=== PATIENT | male | born 2005 | race Caucasian/White ===

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

== ENCOUNTER 2024-04-27 17:32 | Emergency (ER) | payer MEDICAID, SELFPAY ==
[2024-04-27 17:34] VITALS: BP 132/79; PULSE 80; RESP 18; TEMP 36.7; O2SAT 100; BMI 29.2
--- NOTE | 2024-04-27 17:58 | EDS_ITS ---
HPI History of Present Illness Chief Complaint: Mental Health Narrative Narrative: patient is a 19-year-old male with a past medical history of schizophrenia coming Dieud[place], depression, carotid disease who presents to the emergency department after being had a counseling appointment in which she was pink slipped and brought here. According to the patient he has been off his schizophrenia meds now for quite some time in the past 2 days restarted these. He states that he has been having intrusive thoughts of [facility] killing his grandfather as his grandfather is dying of leukemia anyhow' patient otherwise states that he is feeling well and he states that he just does not trust himself with these thoughts anymore. [facility] Medical History Anxiety Depression Hirschsprung's disease Crohn's disease Home Medications ?Medication ?Instructions ?Recorded ?Last Taken ?Type venlafaxine 37.5 mg 37.5 mg PO DAILY DEPRESSION 12/09/18 Unknown History capsule,extended release 24 hr (Effexor XR) hydroxyzine pamoate 25 mg capsule 25 mg PO TID ANXIETY 04/27/24 Unknown History melatonin 10 mg capsule 10 mg PO QHS PRN PRN insomnia 04/27/24 Unknown History paliperidone 3 mg tablet,extended 3 mg PO QHS MOOD 04/27/24 Unknown History release 24 hr trazodone 50 mg tablet 50 mg PO QHS PRN PRN insomnia 04/27/24 Unknown History venlafaxine 75 mg capsule,extended 75 mg PO DAILY DEPRESSION 04/27/24 Unknown History release 24 hr Allergy/AdvReac Type Severity Reaction Status Date / Time red dye Allergy Nausea/Vom/ Verified 04/27/24 17:34 Diarrhea lorazepam (From Ativan) AdvReac PT UNABLE Verified 04/27/24 17:34 TO RESPOND-NEEDS F/U Surgical History Hx of colostomy Social History Smoking Status: Current every day smoker tobacco type: cigarettes and e- cigarettes ROS ROS ED ROS Narrative Constitutional: Denies fevers, chills, headaches, lightheadedness, dizziness Eyes: Denies change in vision double vision blurry vision Cardiovascular: Denies chest pain or palpitations Respiratory: Denies coughing wheezing shortness of breath Abdomen: Denies abdominal pain nausea vomit diarrhea : Denies any urinary symptoms Neurological: Denies numbness, weakness, tingling Psychiatric: Complains of intrusive thoughts as noted above in HPI Musculoskeletal: Denies back pain Skin: Denies rashes or lesions EXAM Physical Exam Narrative Exam Narrative: General: Patient is lying in bed rest comfortably did not appear to be in acute distress Head: Atraumatic, normocephalic Eyes: PERRL bilaterally, EOMI bilaterally, no conjunctival injection noted Neck: Soft, supple, trachea midline Cardiovascular: Regular rate and rhythm no murmurs gallops rubs noted Respiratory: Clear to auscultation bilaterally no rales rhonchi wheeze noted Abdomen: Soft, nondistended, no tenderness palpation, bowel sounds present comes for Extremities: +5/5 strength noted in the bilateral upper and lower extremities, no pedal edema neuroexam Neurological: Patient followed commands and he is aware that her hospital year is 2023 Skin: Warm, dry, intact Const Vital Signs: 04/27/24 17:34 Temperature 98.1 F Temperature Source Temporal Pulse Rate 80 Respiratory Rate 18 Blood Pressure 132/79 H Blood Pressure Mean 96 Pulse Ox 100 Oxygen Delivery Method Room Air MDM MDM MDM Narrative Medical decision making narrative: Patient is a 19-year-old male who presented to the emergency department chief complaint of intrusive thoughts of [facility] killing his grandfather. He was pink slipped prior to his arrival here by his counselor. Patient will have a workup performed here on the differential diagnosis includes but limited to schizophrenia, anxiety, depression, suicidal/homicidal ideations. Once workup is obtained and reviewed he will be reevaluated by social work. Patient CBC reviewed and was largely unremarkable no leukocytosis noted white blood count normal at 8.4, hemoglobin stable 15.7, plate count normal at 255. Patient sodium normal 139, potassium of 3.4, creatinine normal at 0.75. Patient's drug screen negative, alcohol level less than 3. Patient was accepted to facility for inpatient rehab by Dr. mariee. Lab Data Labs: Laboratory Results - last 24 hr 04/27/24 18:00 WBC 8.4 RBC 5.42 Hgb 15.7 Hct 47.3 MCV 87.3 MCH 29.0 MCHC 33.2 RDW Std Deviation 42.7 RDW Coeff of Myranda 13.4 Plt Count 255 MPV 11.3 Immature Gran % (Auto) 0.200 Neut % (Auto) 53.0 Lymph % (Auto) 36.8 [place] % (Auto) 9.1 Eos % (Auto) 0.4 Baso % (Auto) 0.5 Absolute Neuts (auto) 4.5 Absolute Lymphs (auto) 3.11 Nucleated RBC % 0 Sodium 139 Potassium 3.4 L Chloride 105 Carbon Dioxide 27.0 Anion Gap 7 BUN 7 Creatinine 0.75 Estim Creat Clear Calc 184.91 Est GFR (MDRD) Af Amer 170 Est GFR (MDRD) Non-Af 141 BUN/Creatinine Ratio 9.3 L Glucose 93 Calcium 9.6 Urine Opiates Screen NEGATIVE Urine Methadone Screen NEGATIVE Ur Barbiturates Screen NEGATIVE Ur Phencyclidine Scrn NEGATIVE Ur Amphetamines Screen NEGATIVE MDMA (Ecstasy) Screen NEGATIVE U Benzodiazepines Scrn NEGATIVE Urine Cocaine Screen NEGATIVE U Cannabinoids Screen NEGATIVE Ur Drug Screen Comment Ethyl Alcohol < 3.0 Discharge Plan Triage Chief Complaint: Mental Health ED Provider: Cesar Sykes Dx/Rx/DC Orders Prescriptions: No Action venlafaxine [Effexor XR] 37.5 MG capsule,extended release 24hr 37.5 mg PO DAILY hydroxyzine pamoate 25 mg capsule 25 mg PO TID paliperidone 3 mg tablet extended release 24hr 3 mg PO QHS venlafaxine 75 mg capsule,extended release 24hr 75 mg PO DAILY trazodone 50 mg tablet 50 mg PO QHS PRN PRN (Reason: insomnia) melatonin 10 mg capsule 10 mg PO QHS PRN PRN (Reason: insomnia) Primary Care Provider: Julian Valle [facility] Referrals: Kushal Lay MD [Non-Staff] - Print Language: Slovak
[2024-04-27 18:12] LABS: Absolute Lymphocyte Count 3.11 X10^3/uL (0.83-4.51); Absolute Neutrophil Count 4.5 X10^3/uL (2.0-7.7); Basophil# 0.04 X10^3/uL; Basophil% 0.5 % (0-1); Eosinophil# 0.03 X10^3/uL; Eosinophils% 0.4 % (0-5); Hematocrit 47.3 % (40-54); Hemoglobin 15.7 g/dL (13.0-16.5); Lymphocyte # 3.11 X10^3/ul (0.83-4.51); Lymphocyte % 36.8 % (19-41); Mean Corp Hgb Conc 33.2 g/dL (32-36); Mean Corpuscular Volume 87.3 fL (80-94); Mean Platelet Vol. 11.3 fl (6.2-12.0); Monocyte# 0.77 X10^3/uL; Monocyte% 9.1 % (0-10); NRBC Flagged by Analyzer 0 % (0-5); Neutrophil # 4.47 X10^3/uL (2.7-7.7); Platelet Count 255 K/mm3 (150-450); RBC Distribution Width CV 13.4 % (11.6-14.6); RBC Distribution Width SD 42.7 fl (35.1-43.9); Red Blood Count 5.42 M/mm3 (4.6-6.2); White Blood Count 8.4 K/mm3 (4.4-11.0)
[2024-04-27 18:19] LABS: Anion Gap 7 (5-15); BUN 7 mg/dL (7-18); BUN/Creat Ratio 9.3 RATIO (10-20); Calcium,Total 9.6 mg/dL (8.5-10.1); Chloride 105 mmol/L (98-107); Creatinine, Serum 0.75 mg/dL (0.70-1.30); EST Glomerular Filtration Rate 141 mL/min (>60); Est Glom Filt Rate - Afr Amer 170 mL/min (>60); Estimated Creatinine Clearance 184.91 ml/min; Glucose 93 mg/dL (74-106); Potassium 3.4 mmol/L (3.5-5.1); Sodium Level 139 mmol/L (136-145)
[2024-04-27 18:22] LABS: Alcohol, Blood (Medical)-Serum < 3.0 mg/dL
[2024-04-27 18:39] LABS: Vista UDS pH Range 5
[2024-04-27 18:40] LABS: Amphetamine Urine VISTA NEGATIVE (<1000 ng/mL); Barbiturate Urine VISTA NEGATIVE (< 200 ng/mL); Benzodiazepine Urine VISTA NEGATIVE (< 200 ng/mL); Cocaine Urine VISTA NEGATIVE (< 300 ng/mL); Ecstacy Urine VISTA NEGATIVE (< 500 ng/mL); Methadone Urine VISTA NEGATIVE (< 300 ng/mL); PCP Urine VISTA NEGATIVE (< 25 ng/mL); THC Urine VISTA NEGATIVE (< 50 ng/mL)
--- NOTE | 2024-04-27 21:14 | ED.RN ---
CRISIS CALLED AT 2114 FOR AN UPDATE ON THE REFFEREALS , [facility] AND [facility]
[2024-04-27] MEDS: traZODone 50 MG Tablet PO (21:52)
[2024-04-27] MEDS: MELATONIN 10 MG TABLET PO (21:52)
[2024-04-27] MEDS: hydrOXYzine PAM 25 MG Capsule PO (21:59)
[2024-04-28 03:14] VITALS: BP 97/66; PULSE 59; RESP 18; TEMP 36.4
[2024-04-28 06:11] VITALS: BP 97/66; PULSE 59; RESP 18; TEMP 36.4; O2SAT 100
[2024-04-28] MEDS: hydrOXYzine PAM 25 MG Capsule PO (06:44)
== END 2024-04-28 09:01 ==
LOC: ED 18:14
PROVIDERS: Emergency Provider Emergency Medicine; PCP Nurse Practitioner Family; Visit Provider Emergency Medicine
DX: R45.850 Homicidal ideations (principal); F32.A Depression, unspecified; F41.9 Anxiety disorder, unspecified; F17.210 Nicotine dependence, cigarettes, uncomplicated; F17.290 Nicotine dependence, other tobacco product, uncomplicated; Z79.899 Other long term (current) drug therapy
CPT/HCPCS: 80048; 80307; 82077; 85025; 99284

== ENCOUNTER 2024-05-10 15:59 | Emergency (ER) | payer MEDICAID, SELFPAY ==
[2024-05-10 16:00] VITALS: BP 126/97; PULSE 105; RESP 18; TEMP 36.8; O2SAT 99; BMI 28.7
--- NOTE | 2024-05-10 17:03 | EX.ED.VIS.PS ---
HPI HPI - Psych History of Present Illness Chief Complaint: Anxiety Detail of Chief Complaint: Anxiety Informant: patient and parent Narrative Narrative: Patient presents to the emergency department complaint of anxiety. Patient states that she started feeling poorly about 2 hours ago. Patient just feels like he needs to keep moving. He feels like he needs to go to sleep. Feel anxious and jittery. He does have history of schizophrenia. He was started recently on Lexapro a week ago 5 mg. Patient took his Lexapro this morning around 8 AM. Patient also on Invega once a month. Patient also takes trazodone at night to help him sleep. Denies recent illness. Denies feeling suicidal or homicidal. [facility] Medical History Anxiety Depression Hirschsprung's disease Crohn's disease Home Medications ?Medication ?Instructions ?Recorded ?Last Taken ?Type venlafaxine 37.5 mg 37.5 mg PO DAILY DEPRESSION 12/09/18 Unknown History capsule,extended release 24 hr (Effexor XR) hydroxyzine pamoate 25 mg capsule 25 mg PO TID ANXIETY 04/27/24 Unknown History melatonin 10 mg capsule 10 mg PO QHS PRN PRN insomnia 04/27/24 Unknown History paliperidone 3 mg tablet,extended 3 mg PO QHS MOOD 04/27/24 Unknown History release 24 hr trazodone 50 mg tablet 50 mg PO QHS PRN PRN insomnia 04/27/24 Unknown History venlafaxine 75 mg capsule,extended 75 mg PO DAILY DEPRESSION 04/27/24 Unknown History release 24 hr alprazolam 0.5 mg tablet (Xanax) 0.5 mg PO TID PRN anxiety #10 tabs 05/10/24 Unknown Rx Allergy/AdvReac Type Severity Reaction Status Date / Time red dye Allergy Nausea/Vom/ Verified 05/10/24 16:00 Diarrhea lorazepam (From Ativan) AdvReac PT UNABLE Verified 05/10/24 16:00 TO RESPOND-NEEDS F/U Surgical History Hx of colostomy Social History Smoking Status: Current every day smoker tobacco type: cigarettes and e-cigarettes ROS ROS ED Review of Systems ROS Unobtainable: other Constitutional Constitutional ED: Reports lethargy; Denies chills, fever(s), sweats or weight loss Eyes Eyes: Denies blurry vision, change in vision or diplopia ENT ENT ED: Denies rhinorrhea or sore throat Cardiovascular Cardiovascular: Denies chest pain, orthopnea or racing heartbeat Respiratory/Chest Respiratory/Chest: Denies cough, dyspnea, dyspnea on exertion, orthopnea or sputum Gastrointestinal Gastrointestinal: Denies abdominal pain, diarrhea, nausea or vomiting Genitourinary Genitourinary ED: Denies dysuria, hematuria or urinary frequency Musculoskeletal Musculoskeletal: Denies arthralgias, back pain, myalgias or neck pain Integumentary Denies abscess, Abrasions or rash Neurologic Neurologic: Denies headache(s) or weakness Psychiatric Psychiatric: Reports anxiety and other Details: Anxious and jittery ; Denies depression or suicidal thoughts Endocrine Endocrinology: Denies polydipsia, polyphagia or polyuria Hematologic/Lymphatic Hematologic/Lymphatic: Denies easy bleeding, easy bruising or lymphadenopathy Allergic/Immunologic Allergic/Immunologic ED: Denies mouth swelling, tongue swelling or urticaria EXAM Physical Exam Const Vital Signs: 05/10/24 16:00 05/10/24 18:09 05/10/24 19:22 Temperature 98.2 F 98.2 F Temperature Source Oral Pulse Rate 105 H 74 131 H Respiratory Rate 18 16 18 Blood Pressure 126/97 H 136/84 H Blood Pressure Mean 106 101 Pulse Ox 99 98 100 Oxygen Delivery Method Room Air Room Air Positive well nourished and well developed General Appearance ED: well developed and NAD HEENT Reports TM's clear and moist mucous membranes normocephalic and atraumatic; Negative for trauma or tenderness Tympanic Membrane ED: Yes TM's clear Eyes PERRL and EOMs intact bilaterally General Eye ED: Negative for pale conjunctiva or scleral icterus Neck no lymphadenopathy, supple and no JVD General: Negative for tenderness Chest Wall inspection of chest normal and palpation of chest normal Chest: Negative for tenderness Resp normal respiratory effort and clear to auscultation bilaterally Effort and Inspection: Negative for respiratory distress or pain with movement Auscultation: Negative for rhonchi, wheezes or diminished lung sounds Cardio regular rate, regular rhythm, S1 normal heart sound, S2 normal heart sound and no murmurs Peripheral Pulses: pulses 2+ throughout GI normal to inspection, nondistended, normoactive bowel sounds, soft to palpation, non-tender, non-distended and no masses Back/Spine no CVA tenderness and no thoracic nor lumbar tenderness Extremity normal to inspection General Extremety ED: Negative for edema General Extremity: Negative for edema Neuro oriented x3, CN's II-XII intact bilaterally, no sensory deficits noted and gait normal Sensorium / Orientation: awake, alert, oriented to person, oriented to place and oriented to time Motor Exam: strength 5/5 throughout and strength abnormal Psych mental status grossly normal Skin no rashes or lesions noted and no wounds MDM MDM MDM Narrative Medical decision making narrative: Patient presents with anxiety-like symptoms that started 2 hours ago. He is currently on Lexapro and within the last week or so started Invega as well. In the differential would be anxiety disorder versus medication side effect. I did give him a dose of Xanax 0.5 mg and after treatment his symptoms resolved and he felt markedly improved. At this point I do suspect anxiety as the etiology of his symptoms. Recommended he follow-up with a psychiatrist to discuss further treatment options. I will write him a prescription for a few Xanax for as needed severe anxiety. Advised to return if fever, muscle rigidity, or condition should worsen anyway. I do not think symptoms and exam consistent with neuroleptic malignant syndrome. Discharge Plan Triage Chief Complaint: Anxiety ED Provider: Jono Jones Dx/Rx/DC Orders Clinical Impression: Anxiety reaction Instructions: ED Panic Attack Prescriptions: New alprazolam [Xanax] 0.5 mg tablet 0.5 mg PO TID PRN (Reason: anxiety) Qty: 10 0RF No Action venlafaxine [Effexor XR] 37.5 MG capsule,extended release 24hr 37.5 mg PO DAILY hydroxyzine pamoate 25 mg capsule 25 mg PO TID paliperidone 3 mg tablet extended release 24hr 3 mg PO QHS venlafaxine 75 mg capsule,extended release 24hr 75 mg PO DAILY trazodone 50 mg tablet 50 mg PO QHS PRN PRN (Reason: insomnia) melatonin 10 mg capsule 10 mg PO QHS PRN PRN (Reason: insomnia) Primary Care Provider: Julian Valle Referrals: Julian Valle, [employer] [Primary Care Provider] - 3-5 Days Print Language: Upper Sorbian Disposition Disposition: Home, Self Care Discharge Date/Time: 05/10/24 19:24
[2024-05-10] MEDS: ALPRAZolam 0.5 MG Tablet PO (17:26)
[2024-05-10 18:09] VITALS: PULSE 74; RESP 16; O2SAT 98
[2024-05-10 19:22] VITALS: BP 136/84; PULSE 131; RESP 18; TEMP 36.8; O2SAT 100
== END 2024-05-10 19:24 | disposition home or self-care (01) ==
PROVIDERS: Emergency Provider Emergency Medicine; PCP Nurse Practitioner Family; Visit Provider Emergency Medicine
DX: F41.1 Generalized anxiety disorder (principal); F20.9 Schizophrenia, unspecified; F17.210 Nicotine dependence, cigarettes, uncomplicated; Z79.899 Other long term (current) drug therapy; F17.290 Nicotine dependence, other tobacco product, uncomplicated
CPT/HCPCS: 99282

== ENCOUNTER 2024-05-20 18:50 | Emergency (ER) | payer MEDICAID, SELFPAY ==
[2024-05-20 18:53] VITALS: BP 140/95; PULSE 72; RESP 16; TEMP 36.3; O2SAT 98; BMI 27.4
--- NOTE | 2024-05-20 19:34 | EX.ED.VIS.PS ---
HPI HPI - Psych History of Present Illness Chief Complaint: Mental Health Informant: patient, family and EMS Narrative Narrative: Patient presents with muscle spasms of his arms. The patient has schizophrenia and was recently admitted to a psychiatric facility and given Invega, mother states she thinks the injection was given to-3 days early and that is the cause of this. He is on a new prescription, propranolol. None of his other medications were changed. The patient states that he is having thoughts of suicide because of the discomfort from the muscle spasms that have been there for 2 days. He states he is not actively suicidal right now, and he confirms that if the muscle spasms were gone, he would not be suicidal. He denies any muscle or arm pain. [facility] Medical History (Updated 05/20/24 @ 20:[address] Bandar Tejada MD) Schizophrenia Anxiety Depression Hirschsprung's disease Crohn's disease Home Medications ?Medication ?Instructions ?Recorded ?Last Taken ?Type trazodone 50 mg tablet 100 mg PO QHS insomnia 04/27/24 Unknown History alprazolam 0.5 mg tablet (Xanax) 0.5 mg PO TID PRN anxiety #10 tabs 05/10/24 Unknown Rx diazepam 5 mg tablet 5 mg PO BID PRN muscle spasm #10 05/20/24 Unknown Rx tabs escitalopram oxalate 5 mg tablet 5 mg PO DAILY 05/20/24 Unknown History paliperidone palmitate 78 mg/0.5 mg IM 05/20/24 Unknown History mL intramuscular syringe (Invega Sustenna) potassium chloride 20 mEq 20 meq PO BID #8 tabs 05/20/24 Unknown Rx tablet,extended release propranolol 10 mg tablet 10 mg PO BID 05/20/24 Unknown History Allergy/AdvReac Type Severity Reaction Status Date / Time red dye Allergy Nausea/Vom/ Verified 05/10/24 16:00 Diarrhea lorazepam (From Ativan) AdvReac PT UNABLE Verified 05/10/24 16:00 TO RESPOND-NEEDS F/U Surgical History Hx of colostomy Social History Smoking Status: Current every day smoker tobacco type: cigarettes and e-cigarettes ROS ROS ED Constitutional Constitutional ED: Denies chills or fever(s) Eyes Eyes: Denies change in vision or diplopia ENT ENT ED: Denies rhinorrhea or sore throat Cardiovascular Cardiovascular: Denies chest pain or palpitations Respiratory/Chest Respiratory/Chest: Denies cough or dyspnea Gastrointestinal Gastrointestinal: Denies abdominal pain, diarrhea, nausea or vomiting Genitourinary Genitourinary ED: Denies dysuria or hematuria Musculoskeletal Musculoskeletal: Denies back pain or neck pain Integumentary Denies abscess or rash Neurologic Neurologic: Reports other Details: BUE tremor ; Denies headache(s), paresthesias or weakness Psychiatric Psychiatric: Reports anxiety and suicidal thoughts; Denies suicidal ideation EXAM Physical Exam Const Vital Signs: 05/20/24 18:53 05/20/24 19:11 Temperature 97.4 F L Temperature Source Oral Pulse Rate 72 Respiratory Rate 16 Respiratory Effort Normal Non-Labored Respiratory Pattern Normal Blood Pressure 140/95 H Blood Pressure Mean 110 Pulse Ox 98 Oxygen Delivery Method Room Air Positive well nourished and well developed General Appearance ED: well developed and NAD HEENT Reports moist mucous membranes normocephalic and atraumatic Eyes PERRL and EOMs intact bilaterally Neck full ROM and supple Resp normal respiratory effort and clear to auscultation bilaterally Cardio regular rate, regular rhythm and no murmurs GI non-tender and non-distended Auscultation: normoactive bowel sounds Palpation: soft Back/Spine no CVA tenderness General Back: other FROM Extremity normal to inspection Extremity Narrative: Patient is not having any tenderness or distended compartments in his upper extremities or lower extremities. Everything soft and nondistended. Patient has a mild tremor, there are no muscle spasms. The patient indicates that this is what he is referring to as muscle spasms. It is continuous and does not make a difference whether he is resting or performing actions. He can follow commands and move his arms and perform actions without difficulty including using his cell phone. General Extremety ED: Negative for edema, pulses abnormal or tenderness General Extremity: Negative for edema or pulses abnormal Neuro oriented x3, CN's II-XII intact bilaterally and no sensory deficits noted Sensorium / Orientation: awake and alert Motor Exam: strength 5/5 throughout Psych cooperative, speech normal, denies homicidal ideation and denies suicidal ideation Psych Narrative: Flat affect Skin no rashes or lesions noted and no wounds MDM MDM MDM Narrative Medical decision making narrative: I am assuming he was referred to the ER because of the possibility of a dystonic reaction. I do not think he is having a dystonic reaction. I am obtaining some basic labs and ruling out rhabdomyolysis, and treating with a benzo. Did not do well with lorazepam in the past and has had Xanax without a problem so I gave him an oral dose of Valium, it really helped he said. He had no more tremor or any muscle spasms. His labs are normal with the exception of mild hypokalemia. I gave him a dose, I reevaluated him he confirms he is not suicidal and feeling better. Mom states this has been going on for a week and a half. Visit with a psychiatrist who prescribed him propranolol last week, but does not seem to be helping. Was deemed side effects from the Invega. At this time safe to be discharged with a prescription for potassium and Valium to use as needed, not on Xanax right now, and advised to contact psychiatrist for further instructions regarding propranolol and/or other medication options. History & Record Review Discussion w/independent historian: Patient and Family Lab Data Attestation: I reviewed the patient's lab results. Labs: Laboratory Results - last 24 hr 05/20/24 19:50 WBC 9.0 RBC 5.45 Hgb 15.9 Hct 48.2 MCV 88.4 MCH 29.2 MCHC 33.0 RDW Std Deviation 43.3 RDW Coeff of Myranda 13.3 Plt Count 238 MPV 11.0 Immature Gran % (Auto) 0.200 Neut % (Auto) 50.4 Lymph % (Auto) 34.6 [place] % (Auto) 12.5 H Eos % (Auto) 1.6 Baso % (Auto) 0.7 Absolute Neuts (auto) 4.6 Absolute Lymphs (auto) 3.12 Nucleated RBC % 0 Sodium 141 Potassium 3.3 L Chloride 104 Carbon Dioxide 28.0 Anion Gap 9 BUN 7 Creatinine 0.84 Estim Creat Clear Calc 149.40 Est GFR (MDRD) Af Amer 149 Est GFR (MDRD) Non-Af 123 BUN/Creatinine Ratio 8.3 L Glucose 119 H Calcium 10.1 Total Creatine Kinase 185 Discharge Plan Triage Chief Complaint: Mental Health Other Complaint: General Illness ED Provider: Bandar Tejada Dx/Rx/DC Orders Clinical Impression: Drug side effects, Tremor of both hands, Acute hypokalemia, Schizophrenia Instructions: Hypokalemia Dc Prescriptions: New potassium chloride 20 mEq tablet extended release 20 meq PO BID Qty: 8 0RF diazepam 5 mg tablet 5 mg PO BID PRN (Reason: muscle spasm) Qty: 10 0RF No Action alprazolam [Xanax] 0.5 mg tablet 0.5 mg PO TID PRN (Reason: anxiety) Qty: 10 0RF trazodone 50 mg tablet 100 mg PO QHS propranolol 10 mg tablet 10 mg PO BID escitalopram oxalate 5 mg tablet 5 mg PO DAILY Invega Sustenna 78 mg/0.5 mL syringe IM Primary Care Provider: Julian Valle Referrals: Julian Valle, MACHINIST HELPER-C [Primary Care Provider] - (discuss with your psychiatrist for further instructions regarding your propranolol and/or other options) Print Language: Senegalese Disposition Disposition: Home, Self Care
[2024-05-20] MEDS: diazePAM 5 MG Tablet PO (20:01)
[2024-05-20 20:04] LABS: Absolute Lymphocyte Count 3.12 X10^3/uL (0.83-4.51); Absolute Neutrophil Count 4.6 X10^3/uL (2.0-7.7); Basophil# 0.06 X10^3/uL; Basophil% 0.7 % (0-1); Eosinophil# 0.14 X10^3/uL; Eosinophils% 1.6 % (0-5); Hematocrit 48.2 % (40-54); Hemoglobin 15.9 g/dL (13.0-16.5); Lymphocyte # 3.12 X10^3/ul (0.83-4.51); Lymphocyte % 34.6 % (19-41); Mean Corpuscular Hgb 29.2 pg (27.0-32.0); Mean Corpuscular Volume 88.4 fL (80-94); Monocyte# 1.13 X10^3/uL; Monocyte% 12.5 % (0-10); NRBC Flagged by Analyzer 0 % (0-5); Neutrophil # 4.56 X10^3/uL (2.7-7.7); Neutrophil % 50.4 % (47-70); Platelet Count 238 K/mm3 (150-450); RBC Distribution Width CV 13.3 % (11.6-14.6); RBC Distribution Width SD 43.3 fl (35.1-43.9); Red Blood Count 5.45 M/mm3 (4.6-6.2)
[2024-05-20 20:21] LABS: Anion Gap 9 (5-15); BUN 7 mg/dL (7-18); BUN/Creat Ratio 8.3 RATIO (10-20); CPK Total, Creatine Kinase 185 U/L (39-308); Calcium,Total 10.1 mg/dL (8.5-10.1); Chloride 104 mmol/L (98-107); Creatinine, Serum 0.84 mg/dL (0.70-1.30); EST Glomerular Filtration Rate 123 mL/min (>60); Est Glom Filt Rate - Afr Amer 149 mL/min (>60); Glucose 119 mg/dL (74-106); Potassium 3.3 mmol/L (3.5-5.1); Sodium Level 141 mmol/L (136-145)
[2024-05-20] MEDS: Potassium Chloride Oral Tablet 20 MEQ 40 MEQ PO (20:41)
[2024-05-20 21:00] VITALS: BP 129/75; PULSE 70; RESP 18; TEMP 36.6; O2SAT 98
== END 2024-05-20 21:02 | disposition home or self-care (01) ==
PROVIDERS: Emergency Provider Emergency Medicine; PCP Nurse Practitioner Family; Visit Provider Emergency Medicine
DX: R25.1 Tremor, unspecified (principal); F20.9 Schizophrenia, unspecified; E87.6 Hypokalemia; R45.851 Suicidal ideations; T43.595A Adverse effect of other antipsychotics and neuroleptics, initial encounter; F17.210 Nicotine dependence, cigarettes, uncomplicated; Z79.899 Other long term (current) drug therapy; F41.9 Anxiety disorder, unspecified; F32.A Depression, unspecified; F17.290 Nicotine dependence, other tobacco product, uncomplicated
CPT/HCPCS: 36415; 80048; 82550; 85025; 99284

== ENCOUNTER 2024-05-22 15:23 | Emergency (ER) | payer MEDICAID, SELFPAY ==
[2024-05-22] VITALS (9 sets, daily range): BP systolic 107–137; BP diastolic 64–107; PULSE 77–99; RESP 12–18; TEMP 36.8; O2SAT 97–99; BMI 27.1
--- NOTE | 2024-05-22 15:58 | EKG12_ITS ---
Test Reason : PLACEMENT Blood Pressure : / mmHG Vent. Rate : 084 BPM Atrial Rate : 084 BPM P-R Int : 168 ms QRS Dur : 100 ms QT Int : 364 ms P-R-T Axes : 037 020 006 degrees QTc Int : 430 ms Normal sinus rhythm Normal ECG Confirmed by FRANK CONNER MD ([id number]), photo editor RONN DUQUE ([id number]) on 05/25/2024 8:12:23 AM Referred By: Confirmed By:FRANK CONNER MD
--- NOTE | 2024-05-22 15:59 | EX.ED.DYSGE1 ---
HPI History of Present Illness Chief Complaint: Suicidal Informant: patient Narrative Narrative: 19-year-old male brought to the hospital by EMS after crisis was called who called EMS. Grandmother reportedly called crisis because the patient was suicidal. Patient tells me he has a history of schizophrenia and has auditory visual hallucinations of animals. He was recently admitted to psychiatric hospital in [facility]. This was for homicidal ideation regarding his grandfather. He states he has been out of there for about a week week and a half. He states that he has been profusely sweating since he was admitted there. He states that today he did not attempt to overdose on any medications. He was trying to cut himself but the blade was too dull and did not cut the skin. Patient states he has not had anything to eat today. Blood sugar for EMS was 120. Patient endorses suicide as an option because of his depression and in particular about how he has been feeling since his hospitalization. PFSH PFS Medical History Schizophrenia Anxiety Depression Hirschsprung's disease Crohn's disease Home Medications ?Medication ?Instructions ?Recorded ?Last Taken ?Type trazodone 50 mg tablet 100 mg PO QHS insomnia 04/27/24 Unknown History alprazolam 0.5 mg tablet (Xanax) 0.5 mg PO TID PRN anxiety #10 tabs 05/10/24 Unknown Rx diazepam 5 mg tablet 5 mg PO BID PRN muscle spasm #10 05/20/24 Unknown Rx tabs escitalopram oxalate 5 mg tablet 5 mg PO DAILY 05/20/24 Unknown History paliperidone palmitate 78 mg/0.5 78 mg IM 05/20/24 Unknown History mL intramuscular syringe (Invega Sustenna) potassium chloride 20 mEq 20 meq PO BID #8 tabs 05/20/24 Unknown Rx tablet,extended release propranolol 10 mg tablet 10 mg PO BID 05/20/24 Unknown History Allergy/AdvReac Type Severity Reaction Status Date / Time red dye Allergy Nausea/Vom/ Verified 05/10/24 16:00 Diarrhea lorazepam (From Ativan) AdvReac PT UNABLE Verified 05/10/24 16:00 TO RESPOND-NEEDS F/U Surgical History Hx of colostomy Social History Smoking Status: Current every day smoker tobacco type: cigarettes and e-cigarettes ROS ROS ED Constitutional Constitutional ED: Denies chills, fever(s) or weight loss Eyes Eyes: Denies change in vision or diplopia ENT ENT ED: Denies ear pain, rhinorrhea or sore throat Cardiovascular Cardiovascular: Denies chest pain, orthopnea, palpitations or racing heartbeat Respiratory/Chest Respiratory/Chest: Denies cough, dyspnea or orthopnea Gastrointestinal Gastrointestinal: Denies abdominal pain, diarrhea, nausea or vomiting Genitourinary Genitourinary ED: Denies dysuria, hematuria or urinary frequency Musculoskeletal Musculoskeletal: Reports other Details: Muscle spasms of arms (chronic) ; Denies arthralgias or myalgias Integumentary Reports other Details: Diaphoresis ; Denies abscess or rash Neurologic Neurologic: Denies headache(s) or weakness Psychiatric Psychiatric: Reports anxiety, depression, suicidal ideation and suicidal thoughts Endocrine Endocrinology: Denies polydipsia, polyphagia or polyuria Allergic/Immunologic Allergic/Immunologic ED: Denies mouth swelling, tongue swelling or urticaria EXAM Physical Exam Narrative Exam Narrative: Patient is up pacing the room. He appears in no acute distress. Const Vital Signs: 05/22/24 15:23 05/22/24 15:47 05/22/24 16:23 Temperature 98.2 F Temperature Source Oral Pulse Rate 81 89 86 Respiratory Rate 16 18 14 Blood Pressure 107/64 128/82 H 121/82 H Blood Pressure Mean 78 97 95 Pulse Ox 97 97 98 Oxygen Delivery Method Room Air Room Air Room Air 05/22/24 17:00 05/22/24 18:00 05/22/24 19:00 Temperature Temperature Source Pulse Rate 77 82 99 Respiratory Rate 16 15 15 Blood Pressure 121/82 H 126/93 H 134/107 H Blood Pressure Mean 95 104 116 Pulse Ox 99 99 98 Oxygen Delivery Method Room Air Room Air Room Air 05/22/24 19:50 05/22/24 20:00 Temperature 98.3 F Temperature Source Oral Pulse Rate 94 92 Respiratory Rate 16 17 Blood Pressure 130/83 H 137/91 H Blood Pressure Mean 97 106 Pulse Ox 99 Oxygen Delivery Method Room Air Positive well nourished and well developed General Appearance ED: well developed HEENT Reports normocephalic, head/scalp atraumatic and moist mucous membranes Eyes PERRL and EOMs intact bilaterally Eyes Narrative: Pupils are 3 mm bilaterally Neck no lymphadenopathy, supple and no JVD Resp normal respiratory effort and clear to auscultation bilaterally Cardio regular rate, regular rhythm and no murmurs GI normal to inspection, nondistended, normoactive bowel sounds and non-tender Palpation: soft Back/Spine no CVA tenderness and normal ROM Extremity normal to inspection General Extremety ED: Negative for edema General Extremity: Negative for edema Neuro oriented x3 and CN's II-XII intact bilaterally Sensorium / Orientation: alert Motor Exam: strength 5/5 throughout Psych cooperative Psych Narrative: Very blunted affect. Monotone voice. Patient admits to suicidal thoughts and actions. He admits to auditory visual hallucinations of animals. Speech: slow, soft and delayed Mood & Affect: depressed; Negative for tearful Thought Content: suicidality, No homicidality and hallucination(s) Positive for auditory and visual Skin no rashes or lesions noted and no wounds MDM MDM MDM Narrative Medical decision making narrative: Differential diagnosis includes but not limited to toxidrome withdrawal major depressive disorder acute decompensated schizophrenia medication reactions White count 7.3 hemoglobin 14.9 platelet count of 220. INR 1.2 with PTT 27.7. Normal electrolytes as well as glucose. Liver enzymes are within normal limits total body CK2 78. Toxicology is positive for benzodiazepines which she is he is prescribed. Negative acetaminophen and salicylate. Negative alcohol. Venous blood gas with a pH of 7.49 pCO2 32.1 pO2 101 bicarbonate 24.5 this is on room air. His EKG is in normal sinus rhythm. Patient was observed on the monitor with no rhythm changes hypotension. I feel the patient is medically cleared for psychiatric assessment. Crisis will be called. Update 2043 hrs.: The reforestation worker that is evaluated knows him from previous encounter. She notes that this is a dramatic difference in the patient's presentation than before. Our plan is pink slip with psychiatric hospitalization. History & Record Review Discussion w/independent historian: Patient Additional record(s) reviewed:: Prior ED visit and Prior labs Lab Data Attestation: I reviewed the patient's lab results. Labs: Laboratory Results - last 24 hr 05/22/24 16:25 WBC 7.3 RBC 5.11 Hgb 14.9 Hct 45.0 MCV 88.1 MCH 29.2 MCHC 33.1 RDW Std Deviation 43.3 RDW Coeff of Myranda 13.2 Plt Count 221 MPV 11.2 Immature Gran % (Auto) 0.100 Neut % (Auto) 56.0 Lymph % (Auto) 29.5 [place] % (Auto) 12.3 H Eos % (Auto) 1.1 Baso % (Auto) 1.0 Absolute Neuts (auto) 4.1 Absolute Lymphs (auto) 2.14 Nucleated RBC % 0 PT 15.0 H INR 1.2 APTT 27.7 Sodium 139 Potassium 3.6 Chloride 106 Carbon Dioxide 26.0 Anion Gap 7 BUN 5 L Creatinine 0.65 L Estim Creat Clear Calc 193.08 Est GFR (MDRD) Af Amer 202 Est GFR (MDRD) Non-Af 167 BUN/Creatinine Ratio 7.7 L Glucose 104 Lactic Acid 0.8 Calcium 9.4 Total Bilirubin 0.80 Direct Bilirubin 0.18 AST 26 ALT 26 Alkaline Phosphatase 84 Total Creatine Kinase 278 Troponin I High Sens 4 Total Protein 7.4 Albumin 4.1 Globulin 3.3 Urine Color Yellow Urine Clarity Clear Urine pH 6.5 Ur Specific [place] 1.020 Urine Protein 30 H Urine Glucose (UA) Normal Urine Ketones 50 H Urine Occult Blood Negative Urine Nitrite Negative Urine Bilirubin 1 H Urine Urobilinogen 12 H Ur Leukocyte Esterase 25 H Urine RBC 0-5 SEEN Urine WBC 0-5 SEEN Ur Squamous Epith Cells 0-5 SEEN Urine Bacteria 1+ Urine Mucus 3+ Salicylates < 1.7 L Urine Opiates Screen NEGATIVE Urine Methadone Screen NEGATIVE Acetaminophen < 2.0 L Ur Barbiturates Screen NEGATIVE Ur Phencyclidine Scrn NEGATIVE Ur Amphetamines Screen NEGATIVE MDMA (Ecstasy) Screen NEGATIVE U Benzodiazepines Scrn POSITIVE H Urine Cocaine Screen NEGATIVE U Cannabinoids Screen NEGATIVE Ur Drug Screen Comment Ethyl Alcohol 5.0 ABG Data ABG results: ABG 05/22/24 16:28 Specimen Type RAYSHAWN Sample Site Not entered VBG pH 7.49 H VBG pO2 102 H VBG HCO3 25 VBG Total CO2 26 VBG O2 Sat (Calc) 98 H VBG Base Excess 1 POC Mix VBG pCO2 Pt Tmp 32.1 L O2 Delivery Device Not entered Management Discussion w/another healthcare provider: Behavioral health Discharge Plan Triage Chief Complaint: Suicidal ED Provider: Mike Hackett Dx/Rx/DC Orders Prescriptions: No Action alprazolam [Xanax] 0.5 mg tablet 0.5 mg PO TID PRN (Reason: anxiety) Qty: 10 0RF trazodone 50 mg tablet 100 mg PO QHS propranolol 10 mg tablet 10 mg PO BID escitalopram oxalate 5 mg tablet 5 mg PO DAILY Invega Sustenna 78 mg/0.5 mL syringe 78 mg IM potassium chloride 20 mEq tablet extended release 20 meq PO BID Qty: 8 0RF diazepam 5 mg tablet 5 mg PO BID PRN (Reason: muscle spasm) Qty: 10 0RF Primary Care Provider: Julian Valle Referrals: Julian Valle, [employer] [Primary Care Provider] - Print Language: Chinese
[2024-05-22 16:32] LABS: Blood Gas Specimen Type VEN; O2 Delivery Device Not entered; SITE Not entered; VBG BASE EXCESS 1 mmol/L (-1.0-3.5); VBG Bicarbonate 25 mmol/L (22-26); VBG PO2 102 mmHg (25-40); VBG SO2 98 % (50-70); VBG TCO2 26 mmol/L (23-33); VBG pCO2 32.1 mmHg (41-51); VBG pH 7.49 (7.32-7.42)
[2024-05-22] MEDS: 0.9% Normal Saline (1000mL) 1,000 ML 1000 ML IV (16:40)
[2024-05-22 16:43] LABS: Absolute Lymphocyte Count 2.14 X10^3/uL (0.83-4.51); Absolute Neutrophil Count 4.1 X10^3/uL (2.0-7.7); Basophil# 0.07 X10^3/uL; Eosinophil# 0.08 X10^3/uL; Eosinophils% 1.1 % (0-5); Hemoglobin 14.9 g/dL (13.0-16.5); Lymphocyte # 2.14 X10^3/ul (0.83-4.51); Lymphocyte % 29.5 % (19-41); Mean Corp Hgb Conc 33.1 g/dL (32-36); Mean Corpuscular Hgb 29.2 pg (27.0-32.0); Mean Corpuscular Volume 88.1 fL (80-94); Mean Platelet Vol. 11.2 fl (6.2-12.0); Monocyte# 0.89 X10^3/uL; Monocyte% 12.3 % (0-10); NRBC Flagged by Analyzer 0 % (0-5); Neutrophil # 4.06 X10^3/uL (2.7-7.7); Platelet Count 221 K/mm3 (150-450); RBC Distribution Width CV 13.2 % (11.6-14.6); RBC Distribution Width SD 43.3 fl (35.1-43.9); Red Blood Count 5.11 M/mm3 (4.6-6.2); White Blood Count 7.3 K/mm3 (4.4-11.0)
[2024-05-22 16:44] LABS: Color, Urine Yellow (Yellow); Glucose, Dipstick Normal (Normal); Ketone-Dipstick 50 mg/dl (Negative); Leukocyte Esterase-Dipstick 25 /ul (Negative); Nitrite-Dipstick Negative (Negative); Occult Blood-Urine Negative /ul (Negative); Protein-Dipstick 30 mg/dl (Negative); Urine Clarity Clear (Clear); Urine Urobilinogen 12 mg/dl (Normal); Urine pH 6.5 (5.0 - 8.0)
[2024-05-22 16:50] LABS: International Normalized Ratio 1.2
[2024-05-22 16:52] LABS: Partial Thromboplast Time 27.7 Seconds (24.1-36.2)
[2024-05-22 17:04] LABS: Urine Bilirubin Dipstick 1 mg/dL (Negative)
[2024-05-22 17:09] LABS: Red Blood Cells-Urine 0-5 SEEN /hpf (0-5); Squamous Epithelial Cells - UA 0-5 SEEN /hpf (0-5)
[2024-05-22 17:10] LABS: White Blood Cells 0-5 SEEN /hpf (0-5)
[2024-05-22 17:14] LABS: Lactic Acid 0.8 mmol/L (0.4-1.9)
[2024-05-22 17:17] LABS: AST(SGOT) 26 U/L (15-37); Alanine Aminotransfer ALT/SGPT 26 U/L (16-61); Albumin, Serum 4.1 g/dL (3.2-5.0); Alkaline Phosphatase 84 U/L (45-117); Anion Gap 7 (5-15); BUN 5 mg/dL (7-18); BUN/Creat Ratio 7.7 RATIO (10-20); Bilirubin, Direct 0.18 mg/dL (0.00-0.30); Calcium,Total 9.4 mg/dL (8.5-10.1); Chloride 106 mmol/L (98-107); Creatinine, Serum 0.65 mg/dL (0.70-1.30); EST Glomerular Filtration Rate 167 mL/min (>60); Est Glom Filt Rate - Afr Amer 202 mL/min (>60); Estimated Creatinine Clearance 193.08 ml/min; Globulin 3.3 g/dL (2.2-4.2); Glucose 104 mg/dL (74-106); Potassium 3.6 mmol/L (3.5-5.1); Protein, Total 7.4 g/dL (6.4-8.2); Sodium Level 139 mmol/L (136-145); Troponin-I HS 4 pg/mL (3.0-78.0)
[2024-05-22 17:23] LABS: Bacteria 1+ /hpf (None Seen)
[2024-05-22 17:24] LABS: Mucous, Urine 3+ /hpf (<or=2+)
[2024-05-22 17:27] LABS: CPK Total, Creatine Kinase 278 U/L (39-308)
[2024-05-22 17:35] LABS: Amphetamine Urine VISTA NEGATIVE (<1000 ng/mL); Barbiturate Urine VISTA NEGATIVE (< 200 ng/mL); Benzodiazepine Urine VISTA POSITIVE (< 200 ng/mL); Cocaine Urine VISTA NEGATIVE (< 300 ng/mL); Ecstacy Urine VISTA NEGATIVE (< 500 ng/mL); Methadone Urine VISTA NEGATIVE (< 300 ng/mL); PCP Urine VISTA NEGATIVE (< 25 ng/mL); THC Urine VISTA NEGATIVE (< 50 ng/mL); Vista UDS pH Range 5
[2024-05-22 18:32] LABS: Acetaminophen (Tylenol) Level < 2.0 ug/mL (10.0-30.0); Salicylate < 1.7 mg/dL (2.8-20.0)
--- NOTE | 2024-05-22 19:02 | ED.RN ---
CRISIS HAS BEEN CALLED AND MEDICAL CLEARANCE HAS BEEN FAXED
[2024-05-22] MEDS: traZODone 100 MG Tablet PO (20:58)
[2024-05-23 01:03] VITALS: BP 133/91; PULSE 89; RESP 17; O2SAT 98
[2024-05-23 05:00] VITALS: BP 112/79; PULSE 87; RESP 13; TEMP 36.9; O2SAT 97
[2024-05-23 07:04] VITALS: BP 126/79; PULSE 73; RESP 14; O2SAT 98
--- NOTE | 2024-05-23 08:43 | ED.RN ---
EMS IN DEPARTMENT
== END 2024-05-23 10:21 ==
PROVIDERS: Emergency Provider Emergency Medicine; PCP Nurse Practitioner Family; Visit Provider Emergency Medicine
DX: R45.851 Suicidal ideations (principal); F20.9 Schizophrenia, unspecified; F17.210 Nicotine dependence, cigarettes, uncomplicated; F32.A Depression, unspecified; F17.220 Nicotine dependence, chewing tobacco, uncomplicated; F41.9 Anxiety disorder, unspecified; Z79.899 Other long term (current) drug therapy
CPT/HCPCS: 80048; 80076; 80307; 80329; 81001; 82077; 82550; 82803; 83605; 84484; 85025; 85610; 85730; 93005; 96360; 96361; 99285; J7030; G0480

== ENCOUNTER → 2024-08-04 | Outpatient (CLI) | payer MEDICAID, SELFPAY ==
[2024-08-04 17:07] LABS: Absolute Lymphocyte Count 3.48 X10^3/uL (0.83-4.51); Absolute Neutrophil Count 4.1 X10^3/uL (2.0-7.7); Basophil# 0.08 X10^3/uL; Basophil% 0.9 % (0-1); Eosinophil# 0.07 X10^3/uL; Eosinophils% 0.8 % (0-5); Hematocrit 42.8 % (40-54); Hemoglobin 14.2 g/dL (13.0-16.5); Lymphocyte # 3.48 X10^3/ul (0.83-4.51); Lymphocyte % 40.8 % (19-41); Mean Corp Hgb Conc 33.2 g/dL (32-36); Mean Corpuscular Hgb 29.3 pg (27.0-32.0); Mean Corpuscular Volume 88.4 fL (80-94); Mean Platelet Vol. 11.4 fl (6.2-12.0); Monocyte# 0.82 X10^3/uL; Monocyte% 9.6 % (0-10); NRBC Flagged by Analyzer 0 % (0-5); Neutrophil # 4.05 X10^3/uL (2.7-7.7); Neutrophil % 47.5 % (47-70); POSITIVE MORPHOLOGY YES; Platelet Count 217 K/mm3 (150-450); RBC Distribution Width CV 13.5 % (11.6-14.6); Red Blood Count 4.84 M/mm3 (4.6-6.2); White Blood Count 8.5 K/mm3 (4.4-11.0)
[2024-08-04 17:21] LABS: Differential Indicated SCAN CRITERIA MET
[2024-08-04 17:27] LABS: ALB/GLOB Ratio 0.9 RATIO (0.9-2.4); AST(SGOT) 18 U/L (15-37); Alanine Aminotransfer ALT/SGPT 32 U/L (16-61); Albumin, Serum 3.6 g/dL (3.2-5.0); Alkaline Phosphatase 82 U/L (45-117); Anion Gap 5 (5-15); BUN 10 mg/dL (7-18); BUN/Creat Ratio 13.8 RATIO (10-20); Calcium,Total 8.8 mg/dL (8.5-10.1); Chloride 108 mmol/L (98-107); Cholesterol 113 mg/dL (200); Creatinine, Serum 0.72 mg/dL (0.70-1.30); EST Glomerular Filtration Rate 147 mL/min (>60); Est Glom Filt Rate - Afr Amer 177 mL/min (>60); Globulin 3.9 g/dL (2.2-4.2); Glucose 76 mg/dL (74-106); High Density Lipoprotein 42 mg/dL; Potassium 3.9 mmol/L (3.5-5.1); Protein, Total 7.5 g/dL (6.4-8.2); Sodium Level 140 mmol/L (136-145); Triglycerides 97 mg/dL; Very Low Density Lipoprotein 19 mg/dL (5-40)
[2024-08-04 17:30] LABS: Hemoglobin A1c 5.3 % (3.8-5.6)
[2024-08-04 17:45] LABS: Atypical Lymphocyte 1+ %
[2024-08-04 17:46] LABS: Reactive Lymphocyte 2+
[2024-08-04 17:47] LABS: Anisocytosis 1+
== END | disposition home or self-care (01) ==
LOC: VSLAB 13:48
PROVIDERS: PCP Nurse Practitioner Family
DX: F20.9 Schizophrenia, unspecified (principal)
CPT/HCPCS: 36415; 80053; 80061; 83036; 84443; 85025